=== PATIENT | female | born 1965 | race Caucasian/White ===

== ENCOUNTER 2022-12-13 15:20 | Emergency (ER) | payer OTHER, SELFPAY ==
[2022-12-13 15:24] VITALS: BP 161/78; PULSE 73; RESP 17; TEMP 36.6; O2SAT 100; BMI 22.8
--- NOTE | 2022-12-13 15:49 | ED.ABDPAIN ---
HPI - Abdominal Pain General Chief Complaint: Abdominal Pain Stated Complaint: sent by [facility] abd pain Time Seen by Provider: 12/13/22 15:48 Source: patient Mode of arrival: Ambulatory History of Present Illness HPI narrative: n Patient History Social History Smoking Status: Never smoker Smoking Status: Never smoker alcohol intake frequency: a few times a week Substance Use Type: does not use Exam Initial Vital Signs Initial Vital Signs: Vital Signs Temperature 98 F 12/13/22 15:24 Pulse Rate 73 12/13/22 15:24 Respiratory Rate 17 12/13/22 15:24 Blood Pressure 161/78 H 12/13/22 15:24 Pulse Oximetry 100 12/13/22 15:24 Oxygen Delivery Method Room Air 12/13/22 15:24 Course Orders Ordered: ED Orders 12/13/22 15:35 Urine Microscopic Stat 12/13/22 15:48 Complete Blood Count AUTO DIFF Stat Comprehensive Metabolic Panel Stat Lipase Stat Vital Signs Vital signs: Vital Signs - 8 hr 12/13/22 15:24 Temperature 98 F Pulse Rate 73 Respiratory Rate 17 Blood Pressure 161/78 H Pulse Oximetry 100 Oxygen Delivery Method Room Air MDM - Abdominal Pain Lab Data Point of care testing: Point of Care Testing Test Results Negative Urine Dip Bedside Urine Glucose Negative Bedside Urine Bilirubin - Negative Bedside Urine Ketone - Negative Urine Specific [place] 1.01 Bedside Urine Occult Blood - Negative Bedside Urine pH 7.0 Bedside Urine Protein - Negative Bedside Urine Urobilinogen - Negative Bedside Urine Nitrite - Negative Bedside Urine Leukocytes ++ 125 Esterase Discharge Plan Departure Referrals: Miscellaneous,Doctor [Primary Care Provider] -
[2022-12-13 16:00] LABS: RBC Urine 0-1/HPF (0-5/HPF)
[2022-12-13 16:01] LABS: Bacteria Urine Few (2-10); Culture Indicated Urine Specimen Cultured; Squamous Epithelial Cell Urine 1-5 /HPF (0-5/HPF); WBC Urine 1-5/HPF (0-5/HPF)
[2022-12-13 16:10] LABS: Add Manual Diff / Slide Review NO; Basophils Absolute Auto 0 /uL (0-100); Basophils Percent Auto 0.6 % (0-2); Eosinophils Absolute Auto 200 /uL (0-450); Hematocrit 38.8 % (36-46); Hemoglobin 13.5 g/dL (12.0-16.0); Lymphocytes Absolute Auto 2400 /uL (1100-4500); Lymphocytes Percent Auto 36.3 % (25-40); Mean Corpuscular HGB Conc 34.8 % (30-36); Mean Corpuscular Hemoglobin 31.3 PG (26-34); Mean Corpuscular Volume 90.1 fL (80-100); Monocytes Absolute Auto 700 /uL (0-900); Monocytes Percent Auto 10.9 % (3-14); Neutrophils Absolute Auto 3300 /uL (1500-7000); Neutrophils Percent Auto 49.2 % (50-75); Platelet Count 236 X10^3/uL (150-400); Red Blood Cell Count 4.31 X10^6/uL (4.0-5.2); Red Cell Distribution Width 12.8 % (11.6-14.8); White Blood Cell Count 6.7 X10^3/uL (4.5-11.0)
[2022-12-13 16:25] LABS: Alanine Aminotransferase 21 IU/L (<35); Albumin 4.3 g/dL (3.5-5.0); Albumin Globulin Ratio 1.3 (1.0-2.8); Alkaline Phosphatase 75 U/L (38-126); Aspartate Aminotransferase 25 IU/L (14-36); BUN Creatinine Ratio 24.5 (6-22); Bilirubin Total 0.6 mg/dL (0.2-1.3); Blood Urea Nitrogen 13 mg/dL (7-17); Calcium 9.3 mg/dL (8.4-10.2); Carbon Dioxide 29 mmol/L (22-32); Chloride 104 mmol/L (98-107); Estimated Glomerular Filt Rate > 60 mL/min (>60); Globulin 3.4 g/dL (1.7-4.1); Glucose 93 mg/dL (70-100); HEMOLYSIS < 15 (0-50); Lipase 133 U/L (23-300); Potassium 4.1 mmol/L (3.4-5.1); Sodium 139 mmol/L (137-145); Total Protein 7.7 g/dL (6.3-8.2)
--- NOTE | 2022-12-13 16:50 | ED.ABDPAIN ---
HPI - Abdominal Pain <Maryana Salas DO - Last Filed: 12/14/22 07:48> General Chief Complaint: Abdominal Pain Stated Complaint: sent by [facility] abd pain Time Seen by Provider: 12/13/22 15:48 Source: patient Mode of arrival: Ambulatory Limitations: no limitations History of Present Illness HPI narrative: This is a 57 year old female with history of SVT on metoprolol as needed. Patient states she is had left pain that started more in her flank about 2 day go sort of gradually worsening starting to wrap around little bit. She states it has been a little bit worse with movement. It is gotten gradually more intense and persistent. She denies fevers or chills. She is had little bit of mild nausea. She has had a few palpitations but does not feel like she is had any runs of SVT. She is not taken any metoprolol today. She states she only takes it when she has episodes that are prolonged. Denies any chest pain or pressure. Patient has not any vomiting. She denies any diarrhea constipation. No black or bloody stools. No dysuria, urgency frequency or hematuria. No vaginal bleeding or discharge. She has not had similar symptoms in the past. Patient has had a prior wrist surgery but reported intra-abdominal surgeries. No known drug allergies. No tobacco, occasional alcohol socially, no illicit. Patient has not take any medication for pain. She lives on [address] and presents as it is very difficult to get on and off the [place] at night and was concerned that if things worsened. Review of Systems <Maryana Salas DO - Last Filed: 12/14/22 07:48> Review of Systems ROS Unobtainable: All systems reviewed & are unremarkable except as noted in HPI and below Patient History <Maryana Salas DO - Last Filed: 12/14/22 07:48> Social History Smoking Status: Never smoker Smoking Status: Never smoker alcohol intake frequency: a few times a week Substance Use Type: does not use Exam <Maryana Salas DO - Last Filed: 12/14/22 07:48> Narrative Exam Narrative: GENERAL: Alert and oriented x three, well-appearing female in mild distress. HEENT: Head normocephalic, atraumatic, EOMI, pupils reactive, face symmetric, moist mucous membranes NECK: Supple, full range of motion CARDIOVASCULAR: Regular rate and rhythm without murmurs, rubs or gallops. RESPIRATORY: Breath sounds equal bilaterally, no wheezes rales or rhonchi. ABDOMEN: Soft, positive for left lower quadrant tenderness. Normoactive bowel sounds all 4 quadrants. No guarding, positive rebound, no rigidity, no mass, no pulsatile mass or bruit. : No CVA tenderness BACK: No cervical, thoracic or lumbar vertebral point tenderness. Patient has normal range of motion with no obvious discomfort. Patient's gait is normal. Muscle strength is 5/5 in lower extremities. EXTREMITIES: Normal range of motion, no clubbing or edema. Neurovascularly intact NEUROLOGICAL: Cranial nerves II through XII grossly intact. Moving all extremities SKIN: Warm, dry, no petechiae, no rashes or lesions. Initial Vital Signs Initial Vital Signs: Vital Signs Temperature 98 F 12/13/22 15:24 Pulse Rate 73 12/13/22 15:24 Respiratory Rate 17 12/13/22 15:24 Blood Pressure 161/78 H 12/13/22 15:24 Pulse Oximetry 100 12/13/22 15:24 Oxygen Delivery Method Room Air 12/13/22 15:24 <Manjeet Candelario DO - Last Filed: 12/14/22 00:24> Initial Vital Signs Initial Vital Signs: Vital Signs Temperature 98 F 12/13/22 15:24 Pulse Rate 73 12/13/22 15:24 Respiratory Rate 17 12/13/22 15:24 Blood Pressure 161/78 H 12/13/22 15:24 Pulse Oximetry 100 12/13/22 15:24 Oxygen Delivery Method Room Air 12/13/22 15:24 Course <Maryana Salas, DO - Last Filed: 12/14/22 07:48> Orders Ordered: ED Orders 12/13/22 15:35 Urine Culture Stat Urine Microscopic Stat 12/13/22 15:59 Complete Blood Count AUTO DIFF Stat Comprehensive Metabolic Panel Stat Lipase Stat 12/13/22 17:15 CT abdomen pelvis w con Stat 12/13/22 18:16 US pelvic complete Stat Vital Signs Vital signs: Vital Signs - 8 hr 12/13/22 19:25 12/13/22 19:26 12/13/22 19:26 Temperature Pulse Rate 77 75 Respiratory Rate Blood Pressure 178/81 H Pulse Oximetry 100 100 Oxygen Delivery Method 12/13/22 19:30 12/13/22 19:30 12/13/22 20:00 Temperature Pulse Rate 72 Respiratory Rate Blood Pressure 148/55 H 173/94 H Pulse Oximetry 100 Oxygen Delivery Method 12/13/22 20:00 12/13/22 20:09 Temperature 98 F Pulse Rate 82 70 Respiratory Rate 16 Blood Pressure 145/78 H Pulse Oximetry 99 98 Oxygen Delivery Method Room Air <Manjeet Candelario DO - Last Filed: 12/14/22 00:24> Orders Ordered: ED Orders 12/13/22 15:35 Urine Culture Stat Urine Microscopic Stat 12/13/22 15:59 Complete Blood Count AUTO DIFF Stat Comprehensive Metabolic Panel Stat Lipase Stat 12/13/22 17:15 CT abdomen pelvis w con Stat 12/13/22 18:16 US pelvic complete Stat Vital Signs Vital signs: Vital Signs - 8 hr 12/13/22 19:25 12/13/22 19:26 12/13/22 19:26 Temperature Pulse Rate 77 75 Respiratory Rate Blood Pressure 178/81 H Pulse Oximetry 100 100 Oxygen Delivery Method 12/13/22 19:30 12/13/22 19:30 12/13/22 20:00 Temperature Pulse Rate 72 Respiratory Rate Blood Pressure 148/55 H 173/94 H Pulse Oximetry 100 Oxygen Delivery Method 12/13/22 20:00 12/13/22 20:09 Temperature 98 F Pulse Rate 82 70 Respiratory Rate 16 Blood Pressure 145/78 H Pulse Oximetry 99 98 Oxygen Delivery Method Room Air MDM - Abdominal Pain <DO Berta Hawk Last Filed: 12/14/22 07:48> Lab Data 12/13/22 15:59 12/13/22 15:59 Labs: Lab Results 12/13/22 12/13/22 12/13/22 Range/Units 15:35 15:59 15:59 WBC 6.7 (4.5-11.0) X10^3/uL RBC 4.31 (4.0-5.2) X10^6/uL Hgb 13.5 (12.0-16.0) g/dL Hct 38.8 (36-46) % MCV 90.1 (80-100) fL MCH 31.3 (26-34) PG MCHC 34.8 (30-36) % RDW 12.8 (11.6-14.8) % Plt Count 236 (150-400) X10^3/uL Neut % (Auto) 49.2 L (50-75) % Lymph % (Auto) 36.3 (25-40) % [place] % (Auto) 10.9 (3-14) % Eos % (Auto) 3.0 (2-4) % Baso % (Auto) 0.6 (0-2) % Neut # (Auto) 3300 (0948-4781) /uL Lymph # (Auto) 2400 (5517-1473) /uL [place] # (Auto) 700 (0-900) /uL Eos # (Auto) 200 (0-450) /uL Baso # (Auto) 0 (0-100) /uL Sodium 139 (137-145) mmol/L Potassium 4.1 (3.4-5.1) mmol/L Chloride 104 (98-107) mmol/L Carbon Dioxide 29 (22-32) mmol/L BUN 13 (7-17) mg/dL Creatinine 0.53 (0.52-1.04) mg/dL Estimated GFR > 60 (>60) mL/min BUN/Creatinine Ratio 24.5 H (6-22) Glucose 93 (70-100) mg/dL Calcium 9.3 (8.4-10.2) mg/dL Total Bilirubin 0.6 (0.2-1.3) mg/dL AST 25 (14-36) IU/L ALT 21 (<35) IU/L Alkaline Phosphatase 75 (38-126) U/L Total Protein 7.7 (6.3-8.2) g/dL Albumin 4.3 (3.5-5.0) g/dL Globulin 3.4 (1.7-4.1) g/dL Albumin/Globulin Ratio 1.3 (1.0-2.8) Lipase 133 (23-300) U/L Urine RBC 0-1/hpf (0-5/HPF) Urine WBC 1-5/hpf (0-5/HPF) Ur Squamous Epith Cells 1-5 /hpf (0-5/HPF) Urine Bacteria Few (2-10) H (None) Ur Culture Indicated? Specimen cultured Point of care testing: Point of Care Testing Test Results Negative Urine Dip Bedside Urine Glucose Negative Bedside Urine Bilirubin - Negative Bedside Urine Ketone - Negative Urine Specific [place] 1.01 Bedside Urine Occult Blood - Negative Bedside Urine pH 7.0 Bedside Urine Protein - Negative Bedside Urine Urobilinogen - Negative Bedside Urine Nitrite - Negative Bedside Urine Leukocytes ++ [address] scan - abdomen/pelvis: Radiologist's Impression: [address] [address] [address] Scan Report Signed Patient: Radha Jefferson MR#: [id number] : 1965 Acct:[id number] Age/Sex: 57 / F Date of Service: 12/13/22 Loc: ED Accession Number: [id number] ?? Procedure: CT abdomen pelvis w con Ordering Provider: Maryana Salas D.O. PROCEDURE:? CT ABDOMEN PELVIS W CON ? INDICATIONS:? LLQ pain ? TECHNIQUE:? After the administration of intravenous contrast, axial sections acquired from the lung bases to the pubic symphysis.? Coronal and sagittal reformats were performed.? For radiation dose reduction, the following was used:? automated exposure control, adjustment of mA and/or kV according to patient size.? ? COMPARISON:? None. ? FINDINGS:? Image quality:? Excellent.? ? Lung bases:? Unremarkable. Heart:? No significant findings. ? ABDOMEN: Liver:? Unremarkable.? ? Gallbladder:? Unremarkable Biliary ducts:? Unremarkable.? ? Pancreas:? Unremarkable.? ? Spleen:? Unremarkable.? ? Adrenal Glands:? Unremarkable.? ? Kidneys and Ureters:? Unremarkable.? ? ? Stomach and Bowel:? Stomach and small bowel are unremarkable.? No evidence of obstruction.? No evidence of appendicitis.? Moderate stool burden noted throughout the colon.? No wall thickening or surrounding inflammation. Peritoneum:? Trace free fluid within the pelvis, likely physiologic.? No free air. ? Ventral Wall: ? No hernias.? Abdominal Nodes:? No retroperitoneal or mesenteric adenopathy by size criteria.? Vessels:? Aorta and inferior vena cava are normal in size.? ? PELVIS: Pelvic Organs:? Unremarkable.? ? Bladder:? Unremarkable.? ? Pelvic Nodes: No enlarged lymph nodes.? Miscellaneous: No hernias are seen. ? ? ? Bones:? No acute osseous abnormality or aggressive appearing osseous lesion. ? ? IMPRESSION:? ? Trace free fluid within the pelvis, likely physiologic.? Otherwise no evidence of an acute intra-abdominal/pelvic abnormality. ? Prominent periuterine vessels as well as a dilated left ovarian vein.? Recommend clinical correlation for pelvic congestion syndrome. ? ? Dictated by: Pierce Servin D.O. on 12/13/2022 at 17:04 ? ? Approved by: Pierce Servin D.O. on 12/13/2022 at 17:08?? MDM Narrative Medical decision making narrative: This is a 57-year-old female with persistent left flank pain and left lower quadrant pain on examination. Patient has had several days of discomfort. No fevers some mild nausea, no vomiting, no other GI or urinary symptoms. Suspect she might have some diverticulitis. Kidney stone seems less likely as she is tender anteriorly but not posteriorly and also making pyelonephritis less likely. No pulsatile mass or bruit. Patient has normal range of motion nontender musculoskeletal with no movement issues. CBC, CMP, lipase show no major changes, patient has positive leuks, few bacteria urine was cultured. Based on patient's exam and remote living location, CT imaging was obtained. This shows trace free fluid in the pelvis likely physiologic there is some prominent periuterine vessels as well as dilated left ovarian vein recommend clinical correlation for pelvic congestive syndrome. This was discussed with Dr. Jacobson from compensation business partner. She recommends pelvic ultrasound with specific attention to left ovarian vessel for clot or torsion. Updated patient's results, agreeable for pelvic ultrasound. Patient signed out to Dr. Candelario while awaiting ultrasound report. Dr Candelario: Received turned over. Reviewed patient's history and physical exam and workup up to this point. Pelvic ultrasound shows findings that are consistent with pelvic congestion. This could potentially be the cause of her presenting symptoms today but it can not be confirmed based on the workup. Patient has no surgical indications today. Does have bacteria in her urine however we will wait for a culture to result before starting on any antibiotics. Will discharge patient home with instructions to follow-up with her primary doctor and also infrastructure engineer. She was given return precautions. She expressed understanding and agreement. <Manjeet Candelario, - Last Filed: 12/14/22 00:24> Lab Data Labs: Lab Results 12/13/22 12/13/22 12/13/22 Range/Units 15:35 15:59 15:59 WBC 6.7 (4.5-11.0) X10^3/uL RBC 4.31 (4.0-5.2) X10^6/uL Hgb 13.5 (12.0-16.0) g/dL Hct 38.8 (36-46) % MCV 90.1 (80-100) fL MCH 31.3 (26-34) PG MCHC 34.8 (30-36) % RDW 12.8 (11.6-14.8) % Plt Count 236 (150-400) X10^3/uL Neut % (Auto) 49.2 L (50-75) % Lymph % (Auto) 36.3 (25-40) % [place] % (Auto) 10.9 (3-14) % Eos % (Auto) 3.0 (2-4) % Baso % (Auto) 0.6 (0-2) % Neut # (Auto) 3300 (7973-8440) /uL Lymph # (Auto) 2400 (5380-5009) /uL [place] # (Auto) 700 (0-900) /uL Eos # (Auto) 200 (0-450) /uL Baso # (Auto) 0 (0-100) /uL Sodium 139 (137-145) mmol/L Potassium 4.1 (3.4-5.1) mmol/L Chloride 104 (98-107) mmol/L Carbon Dioxide 29 (22-32) mmol/L BUN 13 (7-17) mg/dL Creatinine 0.53 (0.52-1.04) mg/dL Estimated GFR > 60 (>60) mL/min BUN/Creatinine Ratio 24.5 H (6-22) Glucose 93 (70-100) mg/dL Calcium 9.3 (8.4-10.2) mg/dL Total Bilirubin 0.6 (0.2-1.3) mg/dL AST 25 (14-36) IU/L ALT 21 (<35) IU/L Alkaline Phosphatase 75 (38-126) U/L Total Protein 7.7 (6.3-8.2) g/dL Albumin 4.3 (3.5-5.0) g/dL Globulin 3.4 (1.7-4.1) g/dL Albumin/Globulin Ratio 1.3 (1.0-2.8) Lipase 133 (23-300) U/L Urine RBC 0-1/hpf (0-5/HPF) Urine WBC 1-5/hpf (0-5/HPF) Ur Squamous Epith Cells 1-5 /hpf (0-5/HPF) Urine Bacteria Few (2-10) H (None) Ur Culture Indicated? Specimen cultured Point of care testing: Point of Care Testing Test Results Negative Urine Dip Bedside Urine Glucose Negative Bedside Urine Bilirubin - Negative Bedside Urine Ketone - Negative Urine Specific [place] 1.01 Bedside Urine Occult Blood - Negative Bedside Urine pH 7.0 Bedside Urine Protein - Negative Bedside Urine Urobilinogen - Negative Bedside Urine Nitrite - Negative Bedside Urine Leukocytes ++ 125 Esterase Imaging Data US - SPINDLE [employer]VER: Radiologist's Impression: PROCEDURE:? US PELVIC COMPLETE ? INDICATIONS:? PROMINENT LEFT ADNEXAL VEINS ON CT ? TECHNIQUE:? Real-time scanning was performed of the pelvic organs, with image documentation.? Additional endovaginal scanning was necessary due to incomplete visualization of the adnexal and endometrial structures by transabdominal scanning.? ? COMPARISON:? [facility], CT, CT ABDOMEN PELVIS W CON, 12/13/2022, 17:18. ? FINDINGS:? ?? Uterus:? Uterus is anteverted and normal in size at 6.1 x 3.5 x 4.3 cm. The myometrium is homogeneous. ? The endometrium measures 3.1 mm combined thickness.? No fibroids. ? Ovaries:? Ovaries not identified. ? Other:? There are bilateral paraovarian varicosities.? This is also seen on the CT, in which there is a markedly dilated, refluxing left gonadal vein giving rise to bilateral adnexal varicosities. ? ? IMPRESSION:? ? 1. A markedly dilated, refluxing left gonadal vein gives rise to bilateral adnexal varicosities. ? Comment:? In certain individuals, this finding can be associated with the syndrome of chronic pelvic congestion.? However, symptoms typically go way with menopause.? Suggest correlation for presence or absence of classic symptoms of chronic pelvic venous congestion. MDM Narrative Medical decision making narrative: This is a 57-year-old female with persistent left flank pain and left lower quadrant pain on examination. Patient has had several days of discomfort. No fevers some mild nausea, no vomiting, no other GI or urinary symptoms. Suspect she might have some diverticulitis. Kidney stone seems less likely as she is tender anteriorly but not posteriorly and also making pyelonephritis less likely. No pulsatile mass or bruit. Patient has normal range of motion nontender musculoskeletal with no movement issues. CBC, CMP, lipase show no major changes, patient has positive leuks, few bacteria urine was cultured. Based on patient's exam and remote living location, CT imaging was obtained. This shows trace free fluid in the pelvis likely physiologic there is some prominent periuterine vessels as well as dilated left ovarian vein recommend clinical correlation for pelvic congestive syndrome. This was discussed with Dr. Jacobson from compensation business partner. She recommends pelvic ultrasound with specific attention to left ovarian vessel for clot or torsion. Patient signed out to Dr. Candelario while awaiting ultrasound report. Dr Candelario: Received turned over. Reviewed patient's history and physical exam and workup up to this point. Pelvic ultrasound shows findings that are consistent with pelvic congestion. This could potentially be the cause of her presenting symptoms today but it can not be confirmed based on the workup. Patient has no surgical indications today. Does have bacteria in her urine however we will wait for a culture to result before starting on any antibiotics. Will discharge patient home with instructions to follow-up with her primary doctor and also infrastructure engineer. She was given return precautions. She expressed understanding and agreement. Discharge Plan Departure Patient Disposition: Home Clinical Impression: Abdominal pain, Pelvic congestion syndrome Instructions: DI for Abdominal Pain-Adult Activity Restrictions/Additional Instructions: I do recommend that you contact your primary doctor's office for a follow-up. You can also contact the infrastructure engineer provider the number listed below. Return to the emergency department for any new symptoms. Referrals: Nataliia Jacobson MD [Physician] - Miscellaneous,MD Jerrica [Primary Care Provider] - Stand Alone Forms: Patient Portal/API
--- NOTE | 2022-12-13 17:15 | DI.CT.S_ITS ---
PROCEDURE: CT ABDOMEN PELVIS W CON INDICATIONS: LLQ pain TECHNIQUE: After the administration of intravenous contrast, axial sections acquired from the lung bases to the pubic symphysis. Coronal and sagittal reformats were performed. For radiation dose reduction, the following was used: automated exposure control, adjustment of mA and/or kV according to patient size. COMPARISON: None. FINDINGS: Image quality: Excellent. Lung bases: Unremarkable. Heart: No significant findings. ABDOMEN: Liver: Unremarkable. Gallbladder: Unremarkable Biliary ducts: Unremarkable. Pancreas: Unremarkable. Spleen: Unremarkable. Adrenal Glands: Unremarkable. Kidneys and Ureters: Unremarkable. Stomach and Bowel: Stomach and small bowel are unremarkable. No evidence of obstruction. No evidence of appendicitis. Moderate stool burden noted throughout the colon. No wall thickening or surrounding inflammation. Peritoneum: Trace free fluid within the pelvis, likely physiologic. No free air. Ventral Wall: No hernias. Abdominal Nodes: No retroperitoneal or mesenteric adenopathy by size criteria. Vessels: Aorta and inferior vena cava are normal in size. PELVIS: Pelvic Organs: Unremarkable. Bladder: Unremarkable. Pelvic Nodes: No enlarged lymph nodes. Miscellaneous: No hernias are seen. Bones: No acute osseous abnormality or aggressive appearing osseous lesion. IMPRESSION: Trace free fluid within the pelvis, likely physiologic. Otherwise no evidence of an acute intra-abdominal/pelvic abnormality. Prominent periuterine vessels as well as a dilated left ovarian vein. Recommend clinical correlation for pelvic congestion syndrome. Dictated by: Pierce Servin D.O. on 12/13/2022 at 17:04 Approved by: Pierce Servin D.O. on 12/13/2022 at 17:08
--- NOTE | 2022-12-13 18:16 | DI.US.S_ITS ---
PROCEDURE: US PELVIC COMPLETE INDICATIONS: PROMINENT LEFT ADNEXAL VEINS ON CT TECHNIQUE: Real-time scanning was performed of the pelvic organs, with image documentation. Additional endovaginal scanning was necessary due to incomplete visualization of the adnexal and endometrial structures by transabdominal scanning. COMPARISON: [facility], CT, CT ABDOMEN PELVIS W CON, 12/13/2022, 17:18. FINDINGS: Uterus: Uterus is anteverted and normal in size at 6.1 x 3.5 x 4.3 cm. The myometrium is homogeneous. The endometrium measures 3.1 mm combined thickness. No fibroids. Ovaries: Ovaries not identified. Other: There are bilateral paraovarian varicosities. This is also seen on the CT, in which there is a markedly dilated, refluxing left gonadal vein giving rise to bilateral adnexal varicosities. IMPRESSION: 1. A markedly dilated, refluxing left gonadal vein gives rise to bilateral adnexal varicosities. Comment: In certain individuals, this finding can be associated with the syndrome of chronic pelvic congestion. However, symptoms typically go way with menopause. Suggest correlation for presence or absence of classic symptoms of chronic pelvic venous congestion. We strive to produce accurate, complete, and clear reports of imaging services. To assist us in improving patient care, this report was composed using standard report templates and voice recognition software. Therefore, it may contain abnormal punctuation, insertions and/or omissions. Occasional wrong-word or sound-alike substitutions may occur. Though we review the report and make efforts to correct it, we do recommend that the report be read carefully in proper context to recognize any text inaccuracies. Dictated by: Reece Tse M.D. on 12/13/2022 at 19:27 Approved by: Reece Tse M.D. on 12/13/2022 at 19:30
[2022-12-13 19:25] VITALS: PULSE 77; O2SAT 100
[2022-12-13 19:26] VITALS: BP 178/81; PULSE 75; O2SAT 100
[2022-12-13 19:30] VITALS: BP 148/55; PULSE 72; O2SAT 100
[2022-12-13 20:00] VITALS: BP 173/94; PULSE 82; O2SAT 99
[2022-12-13 20:09] VITALS: BP 145/78; PULSE 70; RESP 16; TEMP 36.6; O2SAT 98
== END 2022-12-13 20:10 | disposition home or self-care (01) ==
PROVIDERS: Emergency Medicine; Student in an Organized Health Care Education/Training Program; Emergency Provider Emergency Medicine
DX: R10.32 Left lower quadrant pain (principal); N94.89 Other specified conditions associated with female genital organs and menstrual cycle
CPT/HCPCS: 36415; 74177; 76830; 76856; 80053; 81003; 81015; 81025; 83690; 85025; 87086; 93976; 99283; 99284; Q9967